=== PATIENT | male | born 1980 | race Caucasian/White ===

== ENCOUNTER 2020-06-20 00:23 | Emergency (ER) | payer MEDICAID, SELFPAY ==
--- NOTE | ~2020-06-20 | XR_ITS ---
EXAMINATION: XR CHEST CLINICAL INFORMATION: Cough COMPARISON: 05/04/2019 TECHNIQUE: Frontal view of the chest was obtained. FINDINGS: Cardiac leads overlie the chest. The lungs are well expanded. Mild bronchial wall thickening noted. There is no focal consolidation, edema, or effusion. No pneumothorax. The cardiomediastinal silhouette is within normal limits. No acute osseous abnormality. Radiopaque anchors in the left glenoid. XR/XR chest 1V IMPRESSION: No consolidation. Bronchial wall thickening can be seen with a small airways process such as asthma or atypical/viral infection.
[2020-06-20 00:46] VITALS: BP 124/88; BP 150/110; PULSE 106; PULSE 80; RESP 13; TEMP 36.8; O2SAT 96; BMI 25.8
[2020-06-20 00:51] VITALS: BP 131/75; PULSE 76; RESP 12; TEMP 36.8; O2SAT 97
[2020-06-20 01:43] VITALS: BP 123/86; PULSE 77; RESP 15; TEMP 36.8; O2SAT 97
[2020-06-20 03:04] LABS: Influenza A PCR NEGATIVE (Negative); Influenza B PCR NEGATIVE (Negative); Resp Syncy Virus RNA Qual PCR NEGATIVE (Negative); SARS COV2 PCR INHOUSE NEGATIVE (Negative)
--- NOTE | 2020-06-20 03:08 | ED.GENADULT ---
HPI - General Adult General Chief complaint: General Medical Stated complaint: sob/back pain Time Seen by Provider: 06/20/20 00:51 Source: patient Mode of arrival: EMS History of Present Illness HPI narrative: This is a 40-year-old male who is an everyday smoker and everyday drinker who comes in with complaints of mid upper back pain for 5 days and recently developed some shortness of breath with a nonproductive cough that started today. Patient states that he had an exposure to a friend of his who sister was diagnosed with COVID-19. Related Data Home Medications Medication Instructions Recorded Confirmed No Known Home Meds 06/20/20 06/20/20 Allergies Allergy/AdvReac Type Severity Reaction Status Date / Time Penicillins Allergy Unknown UNKNOWN Verified 06/20/20 00:45 Sulfa (Sulfonamide Allergy Unknown UNKNOWN Verified 06/20/20 00:45 Antibiotics) Review of Systems Review of Systems: Pertinent positives and negatives as stated in HPI 10 point review of systems otherwise negative. PMFSH Past Medical History Source: nursing notes reviewed Surgical History History of knee surgery Hx of shoulder surgery Social History Social History Alcohol intake: current Alcohol intake frequency: 3 or more drinks per day Alcohol type: beer, wine and hard liquor Smoking Status: Current every day smoker Smoked in Last 30 Days: Yes Use of substances other than those prescribed or required for medical reasons: Yes Substance Use Type: Marijuana Substance Use Frequency: Daily Last Used Substance: Days (ago) Advance Directives: No Physical Exam Vital Signs: Vital Signs: Last Vital Signs Temp 98.3 F 06/20/20 01:43 Pulse 77 06/20/20 01:43 Resp 15 06/20/20 01:43 BP 123/86 06/20/20 01:43 Pulse Ox 97 06/20/20 01:43 Body Mass Index 25.8 VITAL SIGNS: Reviewed. GENERAL: Well developed, well nourished, in no acute distress. EARS: Ext canals without abnormality NOSE: Nares patent bilateral OROPHARYNX: no oral lesions noted, posterior pharynx clear NECK: Supple, no adenopathy LUNGS: Normal breath sounds. No adventitious sounds or accessory muscle use. SpO2<96> CARDIOVASCULAR: Regular rate and rhythm without noted murmurs, no JVD or lower extremity edema. ABDOMEN: Soft, non-tender, non-distended with bowel sounds. NEUROLOGIC: Alert and oriented x 4. Course Course Course Narrative: This is a 40-year-old male with history and clinical presentation suggestive of possible COVID-19 positivity and less likely cardiac ischemia, pneumonia, or pancreatitis. Chest x-ray suggest possible viral infection, however COVID-19 testing is negative. Patient is neither hypoxic, tachypneic, and was encouraged to follow up with his primary care provider but understands that he must remain self quarantine as per [facility] guidelines despite having initial COVID-19 testing results of negative. Medical Decision Making Lab Data Labs: Lab Results 06/20/20 Range/Units 01:52 Coronavirus (PCR) NEGATIVE (Negative) Influenza Type A (PCR) NEGATIVE (Negative) Influenza Type B (PCR) NEGATIVE (Negative) RSV RNA Qual (PCR) NEGATIVE (Negative) Discharge Plan Discharge Clinical Impression: Viral syndrome, Cough with exposure to COVID-19 virus Patient Disposition: Home, Self-Care Instructions: Viral Syndrome (ED), COVID-19 (Coronavirus Disease 2019) (ED) Additional Instructions: 1. Follow-up with your primary care provider. 2. You must quarantine as per the [facility] guidelines as you are known to have had a positive exposure despite the fact that your test was negative. Please visit this state website for more detailed information regarding guidelines. 3. Treat any body aches or temperatures greater than 100.4 with [id number] Tylenol/ibuprofen as directed on the outside packaging. Continue to increase fluid hydration especially with water. Do not hesitate to return to the emergency department should you experience any acute worsening of your symptoms. Prescriptions: No Action No Known Home Meds RF: 0 Referrals: Physician,None [Primary Care Provider] - 2 days
[2020-06-20] MEDS: predniSONE 10 MG TABLET 50 MG PO (03:39)
[2020-06-20 03:40] VITALS: BP 132/86; PULSE 89; RESP 19; O2SAT 95
== END 2020-06-20 03:40 | disposition home or self-care (01) ==
PROVIDERS: Emergency Provider Student in an Organized Health Care Education/Training Program
DX: B34.9 Viral infection, unspecified (principal); Z20.822 Contact with and (suspected) exposure to COVID-19; F17.200 Nicotine dependence, unspecified, uncomplicated; F12.90 Cannabis use, unspecified, uncomplicated
CPT/HCPCS: 0241U; 36415; 71045; 99283; 99284

== ENCOUNTER 2020-07-15 08:25 | Outpatient (REF) | payer OTHER, SELFPAY ==
--- NOTE | ~2020-07-15 | XR_ITS ---
EXAMINATION: BILATERAL HAND X-RAY CLINICAL INFORMATION: Other specified soft tissue disorder COMPARISON: Previous right hand x-ray and left finger x-ray from 2007 TECHNIQUE: 3 views of each hand FINDINGS: Right: Bone alignment is normal. No fracture or dislocation is seen. There is mild arthritis at the first MCP joint with joint space narrowing. Joint spaces are otherwise normal. Soft tissues are normal. Left: Bone alignment is normal. No fracture or dislocation is seen. There is mild joint space narrowing at the first MCP joint. Joint spaces are otherwise normal. Soft tissues are normal. XR/XR hand RT min 3V IMPRESSION: Mild joint space narrowing at the first MCP joints otherwise unremarkable exam.
--- NOTE | ~2020-07-15 | XR_ITS ---
EXAMINATION: BILATERAL HAND X-RAY CLINICAL INFORMATION: Other specified soft tissue disorder COMPARISON: Previous right hand x-ray and left finger x-ray from 2007 TECHNIQUE: 3 views of each hand FINDINGS: Right: Bone alignment is normal. No fracture or dislocation is seen. There is mild arthritis at the first MCP joint with joint space narrowing. Joint spaces are otherwise normal. Soft tissues are normal. Left: Bone alignment is normal. No fracture or dislocation is seen. There is mild joint space narrowing at the first MCP joint. Joint spaces are otherwise normal. Soft tissues are normal. XR/XR hand LT min 3V IMPRESSION: Mild joint space narrowing at the first MCP joints otherwise unremarkable exam.
[2020-07-15 11:16] LABS: Imm Gran Abs Auto 0.03 X10*3/uL (0.00-0.03); Imm Gran Pct Auto 0.4 % (0.0-0.4); Red Cell Distribution Width 11.5 % (11.0-16.0)
[2020-07-15 11:19] LABS: Basophils Absolute Auto 0.1 X10*3/uL (0.0-0.2); Basophils Percent Auto 0.7 % (0-2); Eosinophils Absolute Auto 0.6 X10*3/uL (0.0-0.4); Eosinophils Percent Auto 8.1 % (0-4); Hematocrit 49.5 % (42-52); Hemoglobin 16.7 g/dl (14.0-18.0); Lymphocytes Absolute Auto 1.6 X10*3/uL (1.2-4.9); Lymphocytes Percent Auto 21.4 % (20-40); Mean Corpuscular HGB Conc 33.7 g/dl (31.0-36.0); Mean Corpuscular Hemoglobin 34.1 pg (27.0-33.0); Monocytes Absolute Auto 0.6 X10*3/uL (0.1-1.2); Monocytes Percent Auto 7.7 % (2-11); Neutrophils Absolute Auto 4.7 X10*3/uL (2.0-8.3); Neutrophils Percent Auto 61.7 % (45-73); Platelet Count 189 X10*3/uL (160-400); White Blood Count 7.7 X10*3/uL (4.8-10.8)
[2020-07-15 11:57] LABS: Alanine Aminotransferase 36 U/L (0-40); Albumin Level 4.2 g/dL (3.5-5.0); Alkaline Phosphatase 50 U/L (39-117); Anion Gap 14 (12-20); Aspartate Amino Transferase 25 U/L (5-37); Bilirubin Total < 0.2 mg/dL (0.0-1.0); Blood Urea Nitrogen 15 mg/dL (9-16); Calcium 9.1 mg/dL (8.4-10.2); Carbon Dioxide 24 mmol/L (22-29); Chloride 107 mmol/L (96-108); Estimated Glomerular Filt Rate > 60; Glucose Fasting 93 mg/dL (60-99); Potassium 4.7 mmol/L (3.3-5.1); Rheumatoid Factor < 15.0 IU/mL (<15.0); Sodium 140 mmol/L (135-145)
[2020-07-15 11:59] LABS: Creatinine Urine 194.25 mg/dL; Microalbum/Creatinine Ratio Ur 12.8 ug/mg cr
[2020-07-15 12:02] LABS: HBsAGNum1 0.17 S/CO (0.00-0.99); Hepatitis B Surface Antigen Negative (Negative); TSH reflex Free T4 0.72 uIU/mL (0.32-4.0)
[2020-07-15 12:06] LABS: HBS Num1 153.56 mIU/mL (0-7.99); Hepatitis B Core Antibody Nonreactive (Nonreactive); ~HepC Num1 0.09 S/CO (0.00-0.79); ~Hepatitis B Surface Antibody REACTIVE (Nonreactive); ~Hepatitis C Antibody Nonreactive (Nonreactive)
[2020-07-17 01:31] LABS: CRP High Sensitivity 4.7 mg/L
== END 2020-07-15 08:26 | disposition home or self-care (01) ==
LOC: HO.HMGCX 08:25
PROVIDERS: PCP Family Medicine; Visit Provider Family Medicine
DX: Z00.00 Encounter for general adult medical examination without abnormal findings (principal); I10 Essential (primary) hypertension; M79.89 Other specified soft tissue disorders; D69.6 Thrombocytopenia, unspecified; R74.01 Elevation of levels of liver transaminase levels
CPT/HCPCS: 36415; 73130; 80053; 82043; 84443; 85025; 86141; 86431; 86704; 86706; 86803; 87340

== ENCOUNTER 2023-06-25 06:30 | Emergency (ER) | payer OTHER, SELFPAY ==
--- NOTE | 2023-06-25 | ECG_ITS ---
Test Reason : CHEST PAIN Blood Pressure : / mmHG Vent. Rate : 084 BPM Atrial Rate : 084 BPM P-R Int : 124 ms QRS Dur : 108 ms QT Int : 378 ms P-R-T Axes : 054 041 068 degrees QTc Int : 446 ms Normal sinus rhythm Incomplete right bundle branch block Borderline ECG When compared with ECG of 09-APR-2010 23:25, Premature ventricular complexes are no longer Present Referred By: Generic ED Physician Electronically Signed By:BARRETT GUTIÉRREZ
--- NOTE | ~2023-06-25 | XR_ITS ---
EXAMINATION: XR CHEST CLINICAL INFORMATION: Chest pain COMPARISON: 06/20/2020 TECHNIQUE: Frontal view of the chest was obtained. FINDINGS: No significant abnormality is noted involving the heart, lungs, mediastinum, bony thorax or soft tissues. XR/XR chest 1V IMPRESSION: Unremarkable examination.
[2023-06-25 06:37] VITALS: BP 118/77; PULSE 71; RESP 18; TEMP 36.6; O2SAT 99; BMI 26.7
[2023-06-25 07:14] LABS: MANUAL DIFF FLAG NO
[2023-06-25 07:16] LABS: Basophils Percent Auto 0.6 % (0-2); Eosinophils Absolute Auto 0.1 X10*3/uL (0.0-0.4); Eosinophils Percent Auto 1.5 % (0-4); Hematocrit 43.7 % (42.0-52.0); Hemoglobin 15.7 g/dl (14.0-18.0); Imm Gran Abs Auto 0.02 X10*3/uL (0.00-0.03); Imm Gran Pct Auto 0.3 % (0.0-0.4); Lymphocytes Absolute Auto 1.9 X10*3/uL (1.2-4.9); Lymphocytes Percent Auto 28.4 % (20-40); Mean Corpuscular HGB Conc 35.9 g/dl (31.0-36.0); Mean Corpuscular Hemoglobin 30.9 pg (27.0-33.0); Mean Platelet Volume 11.4 fL (9.4-12.4); Monocytes Absolute Auto 0.6 X10*3/uL (0.1-1.2); Monocytes Percent Auto 8.7 % (2-11); Neutrophils Absolute Auto 4.1 x10*3/uL (2.0-8.3); Neutrophils Percent Auto 60.5 % (45-73); Platelet Count 204 X10*3/uL (160-400); Red Blood Count 5.08 X10*6/uL (4.60-5.80); Red Cell Distribution Width 12.2 % (11.0-16.0); White Blood Count 6.8 X10*3/uL (4.8-10.8)
--- NOTE | 2023-06-25 07:17 | ECG_ITS ---
Test Reason : CHEST PAIN Blood Pressure : / mmHG Vent. Rate : 073 BPM Atrial Rate : 073 BPM P-R Int : 176 ms QRS Dur : 108 ms QT Int : 396 ms P-R-T Axes : 058 034 053 degrees QTc Int : 436 ms Normal sinus rhythm Incomplete right bundle branch block Borderline ECG When compared with ECG of 25-JUN-2023 06:36, No significant change was found Referred By: Hilary Mathews Electronically Signed By:BARRETT GUTIÉRREZ
[2023-06-25 07:33] LABS: Alanine Aminotransferase 37 U/L (0-40); Albumin Level 4.7 g/dL (3.5-5.0); Alkaline Phosphatase 55 U/L (39-117); Anion Gap 17 (12-20); Aspartate Amino Transferase 38 U/L (5-37); Bilirubin Total 0.6 mg/dL (0.0-1.0); Blood Urea Nitrogen 13 mg/dL (9-16); Calcium 9.4 mg/dL (8.4-10.2); Carbon Dioxide 22 mmol/L (22-29); Chloride 106 mmol/L (96-108); Creatinine Clr Calc Pharmacy 116.1; Estimated Glomerular Filt Rate > 60; Glucose Random 97 mg/dL (60-115); Magnesium 1.9 mg/dL (1.6-2.6); Potassium 3.4 mmol/L (3.3-5.1); Sodium 142 mmol/L (135-145); Total Protein 7.6 g/dL (6.5-8.0)
[2023-06-25 07:43] LABS: Troponin-I High Sensitivity < 2.7 ng/L (<3.5-35.0)
--- NOTE | 2023-06-25 07:46 | ED.CHESTPAIN ---
HPI - Chest Pain General Chief Complaint: Chest Pain Stated Complaint: CP Time Seen by Provider: 06/25/23 07:07 History of Present Illness HPI narrative: Patient is a 43-year-old male presents today with having chest pain that is mid chest goes to the arm bilaterally while he was getting ready to work he feels somewhat short of breath feels a little lightheaded. The pain was 7/10. Feels like a sharp pain. Not associated with deep breath. He did vape. He has no history of hypertension, hypercholesterolemia, mi. no history of stress test in the past. Patient is from home. Related Data Previous Rx's Medication Instructions Recorded albuterol sulfate 90 mcg/actuation 2 puff inhalation Q4-6H PRN Cough, 07/12/20 aerosol inhaler shortness of breath or wheezing 30 days #8.5 grams lisinopril 5 mg tablet 5 mg PO DAILY 90 days #90 tabs 07/12/20 naproxen 500 mg tablet 500 mg PO BID PRN pain 30 days #60 07/12/20 tabs cetirizine 10 mg tablet 10 mg PO DAILY 30 days #30 tabs 07/18/20 Allergies Allergy/AdvReac Type Severity Reaction Status Date / Time Penicillins Allergy Unknown UNKNOWN Verified 07/18/20 09:53 Sulfa (Sulfonamide Allergy Unknown UNKNOWN Verified 07/18/20 09:53 Antibiotics) Review of Systems Review of Systems: Positive chest pain Yes all other systems are reviewed and are negative PMFSH Past Medical History Attestation statement: The following information was validated with the patient. Medical History PVC (premature ventricular contraction) Surgical History History of knee surgery Hx of shoulder surgery Social History Social History Alcohol intake: current Cigarette Packs Per Day: 1 Smoked in Last 30 Days: No Substance Use Type: Marijuana Substance Use Frequency: Occasionally Advance Directives: No Advance Directives Information Provided: No Physical Exam Vital Signs: Vital Signs: Last Vital Signs Temp 98.5 F 06/25/23 12:28 Pulse 77 06/25/23 12:28 Resp 16 06/25/23 12:28 BP 119/79 06/25/23 12:28 Pulse Ox 96 06/25/23 12:28 O2 Del Method Room Air 06/25/23 12:28 BMI result Body Mass Index 26.7 Appearance: Alert. Oriented X3. No acute distress. Eyes: Pupils equal, round and reactive to light. ENT: Pharynx normal. Neck: Normal inspection. Neck supple. No lymph nodes noted. No crepitus CVS: Normal heart rate and rhythm. Pulses normal. Normal S1 and S2 Respiratory: No respiratory distress. Breath sounds normal. No Wheezing. No rales Abdomen: Soft and nontender. No rigidity. No distention. good BS x4 Skin: Skin warm and dry. Normal skin color. Normal skin turgor. Extremities: No lower extremity edema. Neurovascular intact to all extremities. No Lacerations. No Rash Neuro: Oriented X 3. No motor deficit. No sensory deficit. Moving all extermities. No slurred speech Medications Administered Discontinued Medications Generic Name Dose Route Start Last Admin Trade Name Freq PRN Reason Stop Dose Admin Aspirin 324 mg 06/25/23 07:15 06/25/23 07:49 Aspirin 81 Mg Tab.Chew PO 06/25/23 07:16 324 mg ONCE ONE Administration Medical Decision Making Medical Decision Making [facility] Narrative: Patient presented today with having nonspecific chest pain goes to both arms started approximately 05:00 patient is 43 years old he does have a history of smoking but no other significant cardiac risk factors. Patient troponin x2 sat were negative. Two EKGs were done they were essentially unchanged. Patient's D-dimer was negative in the setting of low risk unlikely to have a PE. Patient's heart score is less than 3 he is 43 years old no significant cardiac risk factors except for smoking. Enzymes negative. EKG not changed. Moderate history. Will have patient follow-up on an outpatient basis Lab Data [facility] Lab Attestation statement: I reviewed the patient's lab results. 06/25/23 07:08 06/25/23 07:08 Labs: Lab Results 06/25/23 06/25/23 06/25/23 Range/Units 07:08 08:48 09:39 WBC 6.8 (4.8-10.8) X10*3/uL RBC 5.08 (4.60-5.80) X10*6/uL Hgb 15.7 (14.0-18.0) g/dl Hct 43.7 (42.0-52.0) % MCV 86.0 (80.0-98.0) fL MCH 30.9 (27.0-33.0) pg MCHC 35.9 (31.0-36.0) g/dl RDW 12.2 (11.0-16.0) % Plt Count 204 (160-400) X10*3/uL MPV 11.4 (9.4-12.4) fL Immature Gran % (Auto) 0.3 (0.0-0.4) % Neut % (Auto) 60.5 (45-73) % Lymph % (Auto) 28.4 (20-40) % [place] % (Auto) 8.7 (2-11) % Eos % (Auto) 1.5 (0-4) % Baso % (Auto) 0.6 (0-2) % Lymph # (Auto) 1.9 (1.2-4.9) X10*3/uL [place] # (Auto) 0.6 (0.1-1.2) X10*3/uL Eos # (Auto) 0.1 (0.0-0.4) X10*3/uL Baso # (Auto) 0.0 (0.0-0.2) X10*3/uL Abs Immat Gran (auto) 0.02 (0.00-0.03) X10*3/uL Absolute Neuts (auto) 4.1 (2.0-8.3) x10*3/uL Absolute Nucleated RBC 0.000 (0.0-0.012) X10*3/uL Nucleated RBC % (auto) 0.0 (0.0-0.2) /100WBC D-Dimer High Sensitivty < 150 NG/ML Sodium 142 (135-145) mmol/L Potassium 3.4 (3.3-5.1) mmol/L Chloride 106 (96-108) mmol/L Carbon Dioxide 22 (22-29) mmol/L Anion Gap 17 (12-20) BUN 13 (9-16) mg/dL Creatinine 0.82 (0.5-1.4) mg/dL Estim Creat Clear Calc 116.1 Estimated GFR > 60 Random Glucose 97 (60-115) mg/dL Calcium 9.4 (8.4-10.2) mg/dL Magnesium 1.9 (1.6-2.6) mg/dL Total Bilirubin 0.6 (0.0-1.0) mg/dL AST 38 H (5-37) U/L ALT 37 (0-40) U/L Alkaline Phosphatase 55 (39-117) U/L Troponin I High Sens < 2.7 < 2.7 (<3.5-35.0) ng/L Total Protein 7.6 (6.5-8.0) g/dL Albumin 4.7 (3.5-5.0) g/dL Independent Interpretation I performed an independent interpretation of an: EKG (Sinus heart rate is 80 [place] QRS QTC within normal limits there is a partial right bundle branch block. There has no acute ST segment elevation. A 2nd EKG done but half an hour later was grossly unchanged) and Plain X-Ray (Chest x-ray is grossly negative for any acute evidence of pneumonia no pneumothorax) Radiology Impression Discussion of test interpretation with radiology: I have reviewed the radiologist's reading. Discharge Plan Discharge Clinical Impression: Chest pain Patient Disposition: Home, Self-Care Instructions: Chest Pain (ED) Prescriptions: No Action cetirizine 10 mg tablet 10 mg PO DAILY 30 Days Qty: 30 3RF naproxen 500 mg tablet 500 mg PO BID PRN (Reason: pain) 30 Days Qty: 60 0RF lisinopril 5 mg tablet 5 mg PO DAILY 90 Days Qty: 90 3RF albuterol sulfate 90 mcg/actuation HFA aerosol inhaler 2 puff inhalation Q4-6H PRN (Reason: Cough, shortness of breath or wheezing) 30 Days Qty: 8.5 3RF Referrals: Marco Yadav MD [Physician] - 06/28/23
[2023-06-25] MEDS: Aspirin 81 MG TAB.CHEW 324 MG PO (07:49)
[2023-06-25 08:09] VITALS: BP 126/77; PULSE 73; RESP 12; TEMP 36.7; O2SAT 97
[2023-06-25 08:48] VITALS: BP 123/65; PULSE 68; RESP 17; TEMP 36.8; O2SAT 98
[2023-06-25 09:03] LABS: D Dimer High Sensitivity < 150 NG/ML
[2023-06-25 10:12] LABS: Troponin-I High Sensitivity < 2.7 ng/L (<3.5-35.0)
[2023-06-25 12:28] VITALS: BP 119/79; PULSE 77; RESP 16; TEMP 36.9; O2SAT 96
--- NOTE | 2023-06-25 12:36 | PC.NURSE ---
patient ambulates back and forth from bathroom with steady gait independently. patient re evaluated stated he is no longer having chest pain or sob.
== END 2023-06-25 13:22 | disposition home or self-care (01) ==
PROVIDERS: Emergency Provider Emergency Medicine Emergency Medical Services; PCP Internal Medicine
DX: R07.9 Chest pain, unspecified (principal); F17.210 Nicotine dependence, cigarettes, uncomplicated
CPT/HCPCS: 36415; 71045; 80053; 83735; 84484; 85025; 85379; 93005; 99283; 99284

== ENCOUNTER → 2023-06-25 06:36 | Outpatient (BNV) | payer OTHER, SELFPAY | PROVIDERS: Emergency Provider Emergency Medicine Emergency Medical Services; PCP Internal Medicine; Visit Provider Internal Medicine | DX: R07.9 Chest pain, unspecified (principal) | CPT/HCPCS: 93010 ==

== ENCOUNTER 2023-08-17 15:05 | Outpatient (AMB) | payer OTHER, SELFPAY ==
[2023-08-17 15:34] VITALS: BP 100/70; PULSE 86; BMI 26.8
--- NOTE | 2023-08-17 15:34 | MHC.OFFVIS ---
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 He ruled out for ACS and was referred to cardiology in follow up. Today he presents for cardiology consultation. He states that on the day of the ED visit he had been feeling well. Then when he arrived at work he starting getting a tightness in his anterior chest that quickly worsened, then radiated to both arms. He felt sob, nauseous and lightheaded. His son was present and drove him to the ED. Once in the ED he states his symptoms gradually improved and resolved. He says the pain lasted 1.5 hrs. He was monitored for 6 hrs and was released. He has had mild random chest pressure since that time. He says it mostly occurs when he is at rest. He has not had any of the other symptoms that accompanied his initial pain. 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 He states this includes heavy lifting which he is tolerating without symptoms. He will feel heart palpitations at times when he notices the chest tightness. No sob, presyncope, syncope, orthopnea or edema. He smokes marijuana daily and vapes. Has not been smoking cigarettes recently but does have hx of smoking them. States he used to drink alcohol heavily and that he now drinks much less. He says that heart disease runs in his family. His paternal uncle had fatal NC age 55. He himself has no known hx of CAD, CHF. He was told in the past that he had PVCs. is present. [facility] Medical History (Updated 08/17/23 @ 17:34 by HENNA Alvarado) PVC (premature ventricular contraction) Surgical History History of knee surgery Hx of shoulder surgery Family History Brother Cancer Social History Alcohol intake: current Cigarette Packs Per Day: 1 Substance Use Type: Marijuana Review of Systems Const All systems reviewed & are unremarkable except as noted in HPI and below ENT Denies dizziness Card Details: Episode of chest pain, shortness of breath, lightheaded, nausea. Intermittent heart palpitations Reports chest pain, Denies chest pain at rest, Denies chest pain with activity, Denies rapid heart rate, Denies pedal edema, Denies edema, Denies leg edema, Denies lightheadedness, Denies palpitations, Reports dyspnea, Reports dyspnea on exertion and Denies orthopnea Resp Denies cough, Reports dyspnea and Reports dyspnea on exertion GI Denies hematochezia and Denies change in stool character Musc Denies abnormal gait, Denies limited range of motion, Denies muscle cramps, Denies muscle weakness, Denies numbness, Denies radiating pain into limb, Denies stiffness and Denies tingling Neuro Denies abnormal gait, Denies dizziness, Denies numbness and Denies tingling Endo Denies palpitations Physical Exam Vital Signs: Last Vital Signs Pulse 86 08/17/23 15:34 BP 100/70 08/17/23 15:34 BMI result Body Mass Index 26.8 Const General: cooperative, healthy appearing, comfortable and no acute distress Orientation/consciousness: patient oriented x3 Neck Neck: Yes normal visual inspection Chest Chest palpation & inspection: normal inspection of the chest Resp Effort & Inspection: normal respiratory effort Auscultation: clear to auscultation bilaterally, no crackles, no rales, no rhonchi and no wheezes Cardio Jugular venous distension: no JVD Rate: regular rate Rhythm: regular rhythm Heart sounds: S1 normal heart sound present, S2 normal heart sound present, no murmurs and no rubs Neuro General: patient oriented x3 Extrem General: Yes normal to inspection, No no pedal edema and No calf tenderness Psych Appearance: grossly normal Mental Status: mental status grossly normal Speech and movement: Normal speech and movement present Assessment & Plan Assessment & Plan (1) Chest pain: Code(s): R07.9 - Chest pain, unspecified Category: Medical Plan: Chest tightness as described above. No symptoms brought on by exertion. ED eval 06/25/23 and he ruled out for ACS. EKG showed SR, incomplete RBBB. D dimer was normal. He does have cardiac risk factors of family hx, HTN, smoking. His symptoms do sound like possible angina. Will check a stress echocardiogram to assess for ischemia. Will check an echocardiogram to assess for structural abnormalities. For his palpitaitons, will check a holter monitor to assess for arrythmia. Signs and symptoms of angina reviewed with him. ED care if needed for symptoms. Instructed to call if he notices symptoms brought on by exertion. Cardiology follow up in 4-6 weeks, sooner if needed (2) Essential hypertension: Code(s): I10 - Essential (primary) hypertension Category: Medical Plan: Reported hx. BP low normal without antihypertensives. (3) Nicotine dependence: Code(s): F17.200 - Nicotine dependence, unspecified, uncomplicated Category: Medical Plan: Hx of smoking, now vaping. Smokes marijuana daily (4) Alcohol abuse: Code(s): F10.10 - Alcohol abuse, uncomplicated Category: Social Hx Plan: Hx of alcohol abuse. Now drinking more socially. (5) PVC (premature ventricular contraction): Code(s): I49.3 - Ventricular premature depolarization Category: Medical Plan: Reported hx of PVCs. Does notice heart palpitations. checking holter. (6) Palpitation: Code(s): R00.2 - Palpitations Category: Medical Plan: as above (7) Hospital discharge follow-up: Code(s): Z09 - Encounter for follow-up examination after completed treatment for conditions other than malignant neoplasm Category: Medical Plan: ED 06/25/23 for CP (8) Incomplete right bundle branch block: Code(s): I45.10 - Unspecified right bundle-branch block Category: Medical Plan: noted on EKG Plan Time spent on chart review, documentation, interview and assessment Orders: Orders CA echo stress exercise Today I45.10 - Unspecified right bundle-branch block, R00.2 - Palpitations, R07.9 - Chest pain, unspecified CA echo transthoracic complete Today I45.10 - Unspecified right bundle-branch block, R00.2 - Palpitations, R07.9 - Chest pain, unspecified ECG 3 day holter monitor Today I49.3 - Ventricular premature depolarization, R00.2 - Palpitations Coding Level of Care Code New Pt Level 4 (96403) Diagnoses Chest pain R07.9 Essential hypertension I10 Nicotine dependence F17.200 Alcohol abuse F10.10 PVC (premature ventricular contraction) I49.3 Palpitation R00.2 Hospital discharge follow-up Z09 Incomplete right bundle branch block I45.10 Time Spent (min) 36
== END 2023-08-17 16:26 | disposition home or self-care (01) ==
PROVIDERS: PCP Internal Medicine; Visit Provider Nurse Practitioner Family
DX: R07.9 Chest pain, unspecified (principal); I10 Essential (primary) hypertension; F17.200 Nicotine dependence, unspecified, uncomplicated; F10.10 Alcohol abuse, uncomplicated; I49.3 Ventricular premature depolarization; R00.2 Palpitations; Z09 Encounter for follow-up examination after completed treatment for conditions other than malignant neoplasm; I45.10 Unspecified right bundle-branch block
CPT/HCPCS: 99204

== ENCOUNTER → 2023-08-17 15:05 | Outpatient (BNVA) | payer OTHER, SELFPAY | PROVIDERS: PCP Internal Medicine; Visit Provider Nurse Practitioner Family ==

== ENCOUNTER → 2023-09-15 10:55 | Outpatient (REF) | payer OTHER, SELFPAY ==
--- NOTE | 2023-09-15 11:07 | CA_ITS ---
Transthoracic Echocardiogram Patient (Last, First, Middle): Dank Brand, Gender: Male Date of : 1980 Age: 43 Procedure Date: 09/15/2023 Procedure Type: Transthoracic Echocardiogram Location: OP Height: 175.26 cm Weight: 83.01 kg BSA: 1.99 m2 Heart Rate: bpm BP: 110 / 60 mmHg Classroom Instructional Aide: ALEXANDRA Referring MD: Karen Watson [employer] Vehicle Driver: Blu Delgado MD Symptoms: R07.9 - Chest pain, unspecified Study Quality: Adequate ECG Rhythm: Sinus Conclusions: - 1. Normal LV systolic and diastolic function 2. Normal cardiac valvular Dopplers 3. Normal RV systolic pressure 4. Mildly dilated ascending aorta 3.9 cm 5. No gross pericardial effusion Findings Left Ventricle Normal left ventricular size, thickness, and systolic function. The visually estimated ejection fraction is between 55-60%. Diastolic function is normal for age. Peak GLS is -21.6%, within normal limits Right Ventricle Normal right ventricular cavity size and systolic function. Atria Both atria are normal in size. Interatrial shunt cannot be excluded. Aortic Valve Normal aortic valve structure and function. There is no aortic valve stenosis. There is no aortic valve regurgitation. Mitral Valve Normal mitral valve structure and function. There is trace mitral valve regurgitation. There is no mitral valve stenosis. Pulmonic Valve The pulmonic valve is likely normal. There is trace pulmonic valve regurgitation. Tricuspid Valve Normal tricuspid valve structure. There is trace tricuspid valve regurgitation. The right ventricular systolic pressure is normal. The right ventricular systolic pressure is 21 mmHg. Normal right atrial pressure. There is no evidence of pulmonary hypertension. Great Vessels The pulmonary artery was not well visualized. There is mild dilatation of the ascending aorta measuring 3.90 cm. Venous The inferior vena cava is normal in size and collapses greater than 50% with inspiration. Pericardium/Pleural There is no evidence of pericardial effusion. Prior Study Comparison No prior study available for comparison. Measurements 2D Linear Measurements IVSd: 0.97 0.6-0.9/0.6-1.0 cm LVIDd: 4.94 3.9-5.3/4.2-5.9 cm LVIDd Index: 2.48 2.4-3.2/2.2-3.1 cm/m2 LVIDs: 3.17 2.0-3.6 cm LVPWd: 0.97 0.7-1.1 cm LA Diam: 2.80 2.7-3.8/3.0-4.0 cm LAIDs Index: 1.41 1.5-2.3 cm/m2 LV Mass: 213.02 67-162/88-224 g LV Mass Index: 107.04 43-95/49-115 g/m2 LVOT Diam: 2.30 3.0+(-)1.3 cm 2D Systolic Function EF 4C: 56.90 >55% EF 2C: 60.10 >55% EF BiP: 58.70 >55% Mitral Valve MV Pk E: 0.65 MV PK A: 0.55 MV Decel Time: 444.00 E/A: 1.20 E'Lateral: 18.00 E'Medial: 10.20 E/E' Med: 6.30 E/E' Lat: 3.60 PHT: 130.00 MVA PHT: 1.69 Decel [place]: 1.46 Aortic Valve AoV Pk Tommy: 1.49 AoV Mn Tommy: 1.07 AoV VTI: 0.36 AoV Pk Grad: 9.00 Aov Mn Grad: 5.00 JUSTEN Cont.VTI: 2.90 LVOT LVOT Pk Tommy: 0.95 LVOT Mn Tommy: 0.66 LVOT VTI: 0.25 LVOT Pk Grad: 4.00 LVOT Mn Grad: 2.00 LVOT Diam: 2.30 LVOT Area: 4.15 Diastolic Function MV Pk E: 0.65 MV Pk A: 0.55 E/A: 1.20 E'Medial: 10.20 E/E' Med: 6.30 E' Laterial: 18.00 E/E' Lat: 3.60 Right Ventricle TAPSE (mm): 35.50 TVS' Tommy: 15.00 Tricuspid Valve TR Pk Tommy: 2.13 TR Pk Grad: 18.00 RA Press: 3.00 RVSP: 21.00 Great Vessels Aorta Sinus of Valsalva: 3.96 2.0-3.[address] [place]: 2.90 1.7-3.4 cm Ao Asc: 3.90 2.1-3.4 cm Ao Arch: 2.90 Updated in Other Vendor System with Status of Final Blu Delgado MD electronically signed on 09/15/2023 1:08:25 PM with status of Final
--- NOTE | 2023-09-15 11:07 | HM_ITS ---
* Total monitoring time 3 days. * Underlying rhythm is sinus with an average rate of 74/Min. * Rare supraventricular and ventricular ectopy. * No significant pauses or AV blocks. * Patient marker used once in association with sinus arrhythmia. * Diary symptoms of quick flutter, mild stabbing correlates with sinus arrhythmia. MTDD
== END ==
LOC: HO.CARD 10:55
PROVIDERS: PCP Internal Medicine; Visit Provider Nurse Practitioner Family
DX: R07.9 Chest pain, unspecified (principal); R00.2 Palpitations; I45.10 Unspecified right bundle-branch block; I49.3 Ventricular premature depolarization
CPT/HCPCS: 93242; 93306; 93356

== ENCOUNTER → 2023-09-15 11:07 | Outpatient (BNV) | payer OTHER, SELFPAY | PROVIDERS: PCP Internal Medicine; Visit Provider Internal Medicine Cardiovascular Disease | DX: I49.3 Ventricular premature depolarization (principal) | CPT/HCPCS: 93244; 93306; 93356 ==

== ENCOUNTER → 2023-09-24 10:44 | Outpatient (REF) | payer OTHER, SELFPAY ==
--- NOTE | 2023-09-24 10:46 | CA_ITS ---
Acquisition Time: 2023-09-24 10:59:30 Total Exercise Time: 00:14:30 Test Indications: Dyspnea Medications: BUSPIRONE Protocol: HAIDER Max HR: 162 BPM 91% of Pred: 177 BPM Max BP: 164/072 mmHG Max Work Load: 17.2 METS Exercise stress test exercise 14 min 30 sec of Haider protocol achieving 91% MPHR, without anginal symptoms, with isolated PVCs and PACs, with normotensive response to exercise, without EKG changes. Echo images obtained by tech at rest and immediately post peak exercise. Definity contrast used. Test reviewed with Dr. Yadav, Referred By: Karen Watson Overread By: Ledy Jordan
== END ==
LOC: HO.CARD 10:44
PROVIDERS: PCP Internal Medicine; Visit Provider Nurse Practitioner Family
DX: R07.9 Chest pain, unspecified (principal); R00.2 Palpitations; I45.10 Unspecified right bundle-branch block
CPT/HCPCS: 93350; Q9957

== ENCOUNTER → 2023-09-24 10:46 | Outpatient (BNV) | payer OTHER, SELFPAY | PROVIDERS: PCP Internal Medicine; Visit Provider Nurse Practitioner | DX: I49.1 Atrial premature depolarization (principal); I49.3 Ventricular premature depolarization; R06.00 Dyspnea, unspecified | CPT/HCPCS: 93016; 93018; 93350; 93352 ==

== ENCOUNTER 2023-10-21 09:49 | Outpatient (AMB) | payer OTHER, SELFPAY ==
[2023-10-21 09:49] VITALS: BP 120/64; PULSE 70; BMI 27.8
--- NOTE | 2023-10-21 09:49 | A.OFFVIS_ITS ---
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 He ruled out for ACS and was referred to cardiology in follow up. On last visit an echocardiogram, stress echocardiogram and Holter monitor were ordered. He now presents for follow-up. Today he reports that he has been doing well with no recurrent chest tightness. He will feel occasional heart palpitations. No sustained rapid or irregular heart rates. No sob, presyncope, syncope, orthopnea or edema. He smokes marijuana daily and vapes. Has not been smoking cigarettes recently but does have hx of smoking them. States he used to drink alcohol heavily and that he now drinks much less. He says that heart disease runs in his family. His paternal uncle had fatal DE age 55. He himself has no known hx of CAD, CHF. He was told in the past that he had PVCs. is present. [facility] Medical History PVC (premature ventricular contraction) Surgical History History of knee surgery Hx of shoulder surgery Family History Brother Cancer Social History Alcohol intake: current Cigarette Packs Per Day: 1 Substance Use Type: Marijuana Review of Systems Const All systems reviewed & are unremarkable except as noted in HPI and below Denies chills, Denies fatigue, Denies fever(s), Denies frequent falls, Denies weakness, Denies weight gain and Denies weight loss ENT Denies dizziness Card Denies chest pain, Denies leg edema, Denies lightheadedness, Denies palpitations, Denies dyspnea and Denies dyspnea on exertion Resp Denies cough, Denies dyspnea and Denies dyspnea on exertion GI Denies hematochezia Musc Denies abnormal gait, Denies muscle weakness, Denies numbness, Denies radiating pain into limb and Denies tingling Neuro Denies abnormal gait, Denies dizziness, Denies frequent falls, Denies numbness, Denies tingling and Denies weakness Endo Denies fatigue and Denies palpitations Physical Exam Vital Signs: Last Vital Signs Pulse 70 10/21/23 09:49 BP 120/64 10/21/23 09:49 BMI result Body Mass Index 27.8 Const General: cooperative, healthy appearing, comfortable and no acute distress Orientation/consciousness: patient oriented x3 Neck Neck: Yes normal visual inspection Chest Chest palpation & inspection: normal inspection of the chest Resp Effort & Inspection: normal respiratory effort Auscultation: clear to auscultation bilaterally, no crackles, no rales, no rhonchi and no wheezes Cardio Jugular venous distension: no JVD Rate: regular rate Rhythm: regular rhythm Heart sounds: S1 normal heart sound present, S2 normal heart sound present, no murmurs and no rubs Neuro General: patient oriented x3 Extrem General: Yes normal to inspection, No no pedal edema and No calf tenderness Psych Appearance: grossly normal Mental Status: mental status grossly normal Speech and movement: Normal speech and movement present Assessment & Plan Assessment & Plan (1) Chest pain: Code(s): R07.9 - Chest pain, unspecified Category: Medical Plan: Episode of chest tightness, nonexertional with ED eval 06/25/23 and he ruled out for ACS. EKG showed SR, incomplete RBBB. D dimer was normal. He does have cardiac risk factors of family hx, HTN, smoking. For further evaluation he underwent an echocardiogram on 09/15/2023 showing EF 55-60%, no valve abnormalities, ascending aorta 3.9 cm. A stress echocardiogram was done 09/24/2023 with exercise 14 minutes 30 seconds with no anginal symptoms, no EKG changes of ischemia and no echo evidence of ischemia. A Holter monitor was done on 09/16/2023 for 3 days showing sinus rhythm with rare SVE and VE, his symptom of fluttering correlated with sinus arrhythmia. Test results reviewed with him in detail. At this time he has no anginal sounding symptoms. Informed him that I can not exclude mild nonobstructive CAD. Offered coronary calcium score and he declined at this time. Signs and symptoms of angina reviewed. Emergency care if ever needed for symptoms. Cardiology follow-up as needed. (2) Essential hypertension: Code(s): I10 - Essential (primary) hypertension Category: Medical Plan: Reported hx. BP normal without antihypertensives. (3) Nicotine dependence: Code(s): F17.200 - Nicotine dependence, unspecified, uncomplicated Category: Medical Plan: Hx of smoking, now vaping. Smokes marijuana daily. Reviewed the benefits of smoking/vaping cessation for cardiac risk factor reduction. (4) Alcohol abuse: Code(s): F10.10 - Alcohol abuse, uncomplicated Category: Social Hx Plan: Hx of alcohol abuse. Now drinking more socially. (5) PVC (premature ventricular contraction): Code(s): I49.3 - Ventricular premature depolarization Category: Medical Plan: Reported hx of PVCs. Does notice heart palpitations. Holter shows only rare SVE and VE. (6) Palpitation: Code(s): R00.2 - Palpitations Category: Medical Plan: as above (7) Incomplete right bundle branch block: Code(s): I45.10 - Unspecified right bundle-branch block Category: Medical Plan: noted on EKG (8) Mild ascending aorta dilatation: Code(s): I77.810 - Thoracic aortic ectasia Category: Medical Plan: Mildly dilated ascending aorta. Reviewed with him. Encouraged good blood pressure and cholesterol control. Recommend repeat echocardiogram in 2-3 years. Will forward this note to his PCP. Patient also informed. Plan Time spent on chart review, documentation, interview and assessment Coding Level of Care Code Est Pt Level 3 (73199) Diagnoses Chest pain R07.9 Essential hypertension I10 Nicotine dependence F17.200 Alcohol abuse F10.10 PVC (premature ventricular contraction) I49.3 Palpitation R00.2 Incomplete right bundle branch block I45.10 Mild ascending aorta dilatation I77.810 Time Spent (min) 24
== END 2023-10-21 10:23 | disposition home or self-care (01) ==
PROVIDERS: PCP Internal Medicine; Visit Provider Nurse Practitioner Family
DX: R07.9 Chest pain, unspecified (principal); I10 Essential (primary) hypertension; F17.200 Nicotine dependence, unspecified, uncomplicated; F10.10 Alcohol abuse, uncomplicated; I49.3 Ventricular premature depolarization; R00.2 Palpitations; I45.10 Unspecified right bundle-branch block; I77.810 Thoracic aortic ectasia
CPT/HCPCS: 99213

== ENCOUNTER → 2023-10-21 09:49 | Outpatient (BNVA) | payer OTHER, SELFPAY | PROVIDERS: PCP Internal Medicine; Visit Provider Nurse Practitioner Family ==